=== PATIENT | female | born 1995 | race Caucasian/White ===

== ENCOUNTER 2022-06-19 06:33 | Day surgery (SDC) | payer BC ==
[2022-06-18 10:19] VITALS: BMI 30.4
[2022-06-19] MEDS ORDERED: Ferric Subsulfate (ASTRINGYN) 8 GM VIAL ONE (08:59)
[2022-06-19] MEDS ORDERED: fentaNYL PF 100 MCG/2 ML SYRINGE ONE (09:05)
[2022-06-19] MEDS ORDERED: Midazolam HCl 2 mg/2 ml Vial ONE (09:05)
[2022-06-19] MEDS ORDERED: PROPOFOL 200 MG/20 ML VIAL ONE (09:16)
[2022-06-19] MEDS ORDERED: Ondansetron PF 4 MG/2 ML Vial ONE (09:16)
[2022-06-19] MEDS ORDERED: ePHEDrine 50 MG/ML VIAL ONE (09:16)
[2022-06-19] MEDS ORDERED: Dexamethasone 20 MG/5 ML VIAL ONE (09:16)
[2022-06-19] MEDS ORDERED: FENTANYL 50 MCG/ML 1 ML VIAL ONE ×4 (09:54→10:56)
[2022-06-19] MEDS ORDERED: Hydrocodone-Acetamin 15 ML UDCUP ONE ×2 (11:57)
== END 2022-06-19 13:28 | disposition home or self-care (01) ==
LOC: SDC 06:33
PROVIDERS: ATTEND Specialist
PROC: 0CTPXZZ Resection of Tonsils, External Approach (ICD-10-PCS; principal; 2022-06-19)
DX: J03.91 Acute recurrent tonsillitis, unspecified (principal); J35.01 Chronic tonsillitis; Z86.16 Personal history of COVID-19; Z79.3 Long term (current) use of hormonal contraceptives; Z88.8 Allergy status to other drugs, medicaments and biological substances
CPT/HCPCS: 88304; J1100; J2250; J2405; J2704; J3010; J3490